=== PATIENT | male | born 1965 | race Hispanic/Latino ===

== ENCOUNTER 2017-04-16 07:27 | Outpatient (CLI) | payer BC ==
--- NOTE | 2017-04-16 09:43 | XRay Report ---
LEFT HAND, 3 views: History: Left hand pain. No comparison. There is normal bone mineralization. No evidence for fracture, bone lesion or erosive joint pathology. Mild to moderate osteoarthritic changes are noted at the first metacarpophalangeal joint. The soft tissues are within normal limits. 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
== END 2017-04-16 07:28 | disposition home or self-care (01) ==
LOC: SPVIMAG 07:27
PROVIDERS: ATTEND Orthopaedic Surgery
DX: M18.9 Osteoarthritis of first carpometacarpal joint, unspecified (principal)